=== PATIENT | male | born 1985 | race Caucasian/White ===

== ENCOUNTER 2019-11-07 17:47 | Emergency (ER) | payer OTHER, SELFPAY ==
[2019-11-07 17:54] VITALS: BP 126/71; PULSE 89; RESP 20; TEMP 36.8; O2SAT 97
--- NOTE | 2019-11-07 17:59 | DI.RAD.S_ITS ---
PROCEDURE: XR ANKLE LT MIN 3V INDICATIONS: lt ankle ran over by equipment TECHNIQUE: 3 views of the ankle were acquired. COMPARISON: None. FINDINGS: Bones: No fractures or dislocations. Ankle mortise is normally aligned. No suspicious bony lesions. Soft tissues: Small tibiotalar joint effusion. Achilles tendon appears normal. Medial soft tissue swelling. IMPRESSION: No fracture or dislocation. Small tibiotalar joint effusion. Dictated by: Ford Carballo M.D. on 11/07/2019 at 18:22 Approved by: Ford Carballo M.D. on 11/07/2019 at 18:24
--- NOTE | 2019-11-07 20:27 | ED_ITS ---
HPI - Extremity Injury (Lower) <[facility] - Last Filed: 11/07/19 20:54> General Chief Complaint: Extremity Injury, Lower Stated Complaint: LEFT FOOT AND ANKLE INJURY Time Seen by Provider: 11/07/19 18:55 Source: patient and family Mode of arrival: Ambulatory Limitations: no limitations History of Present Illness HPI Narrative: The patient is a 34-year-old male who presents with a chief complaint of left ankle pain. He states he sprained when he was hit by a heavy shopping cart while at work today. He states that he rolled forward, now complains of pain the outside of his ankle as well as down in his forefoot. He has not taken anything for pain. He has continued working on it since the injury. Denies any previous injury to the area. He has not applied any ice. Review of Systems <[facility] - Last Filed: 11/07/19 20:54> Review of Systems Narrative: GENERAL: Denies chills, fatigue, malaise, fever, sweats. HEENT: Denies sinus pain, ear pain, sore throat, difficulty swallowing, dizziness. RESPIRATORY: Denies dyspnea, cough, wheezing, hemoptysis, sputum. CARDIOVASCULAR: Denies chest pain, palpitations, orthopnea, edema, GASTROINTESTINAL: Denies nausea, vomiting, abdominal pain, diarrhea, constipation, melena. : Denies dysuria, frequency, incontinence, hematuria, urinary retention. MUSCULOSKELETAL: See HPI SKIN: Denies rash, skin lesions, or other NEUROLOGIC: Denies weakness, headache, numbness, change in speech, confusion, seizures, incoordination. PSYCHIATRIC: No concerning psychosocial issues. 12 point review of systems is negative except for those stated above Exam <[facility] - Last Filed: 11/07/19 20:54> Narrative Exam Narrative: GENERAL: This is a well-nourished, well-developed patient, in no acute distress HEAD: Atraumatic. Normocephalic. No temporal or scalp tenderness. EYES: Pupils equal round and reactive. Extraocular motions intact. No scleral icterus. No injection or drainage. ENT: Nose without bleeding, purulent drainage or septal hematoma. Throat without erythema, tonsillar hypertrophy or exudate. Uvula midline. Airway patent. NECK: Trachea midline. No JVD or lymphadenopathy. Supple, nontender, no meningeal signs. CARDIOVASCULAR: Regular rate and rhythm RESPIRATORY: No cough. No increased respiratory effort. No accessory muscle use. EXTREMITIES: Pain to palpation left lateral malleolus with associated swelling. Positive pedal pulses. Able to wiggle toes. Pain to palpation over forefoot. Able to flex and extend left ankle. BACK: Nontender without deformity or crepitance. No flank tenderness. NEURO: AOx3. SKIN: Diffuse ecchymosis noted over lateral aspect of left ankle. Initial Vital Signs Initial Vital Signs: Vital Signs Temperature 98.3 F 11/07/19 17:54 Pulse Rate 89 11/07/19 17:54 Respiratory Rate 20 11/07/19 17:54 Blood Pressure 126/71 11/07/19 17:54 Pulse Oximetry 97 11/07/19 17:54 <Gopal Aragon DO - Last Filed: 11/07/19 21:15> Initial Vital Signs Initial Vital Signs: Vital Signs Temperature 98.3 F 11/07/19 17:54 Pulse Rate 89 11/07/19 17:54 Respiratory Rate 20 11/07/19 17:54 Blood Pressure 126/71 11/07/19 17:54 Pulse Oximetry 97 11/07/19 17:54 Procedures <BRO Freeman - Last Filed: 11/07/19 20:54> Orthopedic Splinting/Casting Injury #1: Side: left Lower Extremity Injury Location: ankle Lower Extremity Immobilizer: AirCast and Tulio wrap Other Orthopedic Equipment: crutches Post splinting neuro exam: intact Post splinting vascular exam: intact Placed by: Nursing Course <BRO Freeman - Last Filed: 11/07/19 20:54> Orders Ordered: ED Orders 11/07/19 17:59 XR ankle LT min 3V Stat Vital Signs Vital signs: Vital Signs - 8 hr 11/07/19 17:54 Temperature 98.3 F Pulse Rate 89 Respiratory Rate 20 Blood Pressure 126/71 Pulse Oximetry 97 <Gopal Aragon DO - Last Filed: 11/07/19 21:15> Orders Ordered: ED Orders 11/07/19 17:59 XR ankle LT min 3V Stat Vital Signs Vital signs: Vital Signs - 8 hr 11/07/19 17:54 Temperature 98.3 F Pulse Rate 89 Respiratory Rate 20 Blood Pressure 126/71 Pulse Oximetry 97 MDM - Extremity Injury (Lower) <Oralia DrakeSANDRAP-BC - Last Filed: 11/07/19 20:54> Imaging Data Ankle x-ray: Radiologist's impression: [address] [address] XRay Report Signed Patient: Ochoa Patel HMR#: [id number] : 1985Acct:[id number] Age/Sex: 34 / MDate of Service: 11/07/19 Loc: ED Accession Number: [id number] Procedure: XR ankle LT min 3V Ordering Provider: Gopal Aragon D.O. PROCEDURE: XR ANKLE LT MIN 3V INDICATIONS: lt ankle ran over by equipment TECHNIQUE: 3 views of the ankle were acquired. COMPARISON: None. FINDINGS: Bones: No fractures or dislocations. Ankle mortise is normally aligned. No suspicious bony lesions. Soft tissues: Small tibiotalar joint effusion. Achilles tendon appears normal. Medial soft tissue swelling. IMPRESSION: No fracture or dislocation. Small tibiotalar joint effusion. Dictated by: Ford Carballo M.D. on 11/07/2019 at 18:22 Approved by: Ford Carballo M.D. on 11/07/2019 at 18:24 [facility] Narrative Medical decision making narrative: The patient is a 34-year-old male who presents with a chief complaint of left ankle and foot pain. X-ray shows no acute fracture, though we discussed the possibility of a soft tissue injury versus occult fracture. Patient does have pain to palpation over C4 foot, but declines of foot x-rays. Discussed at length rest ice compression elevation as well as [id number] pain medications as needed and able. Discussed importance of follow-up with primary care provider in the next few days. Patient has no questions or concerns upon discharge and states understanding of return precautions of any acute concerns and follow-up care. Discharge Plan Departure Patient Disposition: Home Clinical Impression: Ankle sprain and strain Discharge Date/Time: 11/07/19 20:11 Instructions: DI for Ankle Sprain, How To Perform RICE (Rest, Ice, Compress, Elevate), DI for Ankle Pain Activity Restrictions/Additional Instructions: As I discussed, your x-ray shows no acute fracture. This does not rule out a soft tissue injury such as a ligament or tendon injury. It is important that you follow up with primary care provider, especially if worsening or no improvement. There can be fractures that did not show up on initial x-ray. Please use rest ice compression elevation as well as [id number] pain medications as needed and able. Please follow-up with primary care provider in the next few days. Please remember that you elected to not have x-rays of her foot, so if you continue to have significant foot pain please be re-evaluated Please come back to the emergency department for any acute concerns Referrals: [facility] [Provider Group] Stand Alone Forms: Work Release Note <Gopal Aragon, DO - Last Filed: 11/07/19 21:15> Sign Out Provider Sign Out Attestation: Dr Aragon Co-Sign Statement: I was available for consultation during this patient's emergency department visit. This chart is signed by myself for administrative purposes only. I did not have direct contact with this patient during this visit. They were seen independently by the APC.
== END 2019-11-07 20:11 | disposition home or self-care (01) ==
PROVIDERS: Emergency Provider Nurse Practitioner Family
DX: S93.402A Sprain of unspecified ligament of left ankle, initial encounter (principal); S96.912A Strain of unspecified muscle and tendon at ankle and foot level, left foot, initial encounter; W22.8XXA Striking against or struck by other objects, initial encounter
CPT/HCPCS: 29540; 73610; 99281; 99283